=== PATIENT | male | born 1955 | race Caucasian/White ===

== ENCOUNTER 2017-05-26 19:39 | Observation (INO) | payer SELFPAY ==
[2017-05-26 20:34] LABS: BASO % 0.5 % (0.0-2.0); EOS # 0.2 K/uL (0.0-0.7); EOS % 2.4 % (0.0-4.0); HEMOGLOBIN 14.1 g/dL (12.0-18.0); LYMPH # 2.5 K/uL (1.0-4.3); LYMPH % 35.2 % (20.0-40.0); MEAN CELL VOLUME 83.4 fL (80.0-94.0); MEAN CORPUSCULAR HEMOGLOBIN 28.1 pg (27.0-31.0); MEAN CORPUSCULAR HGB CONC 33.7 g/dL (33.0-37.0); MEAN PLATELET VOLUME 7.2 fL (7.2-11.7); MONO # 0.5 K/uL (0.0-0.8); MONO % 7.6 % (0.0-10.0); NEUT # 3.8 K/uL (1.8-7.0); NEUT % 54.3 % (50.0-75.0); RED CELL DISTRIBUTION WIDTH 14.3 % (11.5-14.5); WHITE BLOOD COUNT 7.1 K/uL (4.8-10.8)
[2017-05-26 20:46] LABS: ALB/GLOB RATIO 1.2 (1.0-2.1); ALBUMIN 4.2 g/dL (3.5-5.0); ALT/SGPT 25 U/L (21-72); AST/SGOT 28 U/L (17-59); BLOOD UREA NITROGEN 10 mg/dL (9-20); CALCIUM 9.5 mg/dl (8.6-10.4); GFR AFRICAN-AMERICAN > 60; GFR NON-AFRICAN AMERICAN > 60
[2017-05-26 20:59] LABS: CK-MB < 0.22 ng/mL (0.0-3.38)
--- NOTE | 2017-05-26 21:30 | C.PDOC ---
History Of Present Illness 62 year old male presents to the ER with a complaint of left lower chest pain since approximately 16:00. Patient reports the pain is pleuritic, reproducible, intermittent, nonradiating, and has improved since then. Patient has a Hx of diabetes, HTN, and CAD with one stent placed 4 years ago. Denies cough, fever, nausea, vomiting, or SOB. Time Seen by Provider: 05/26/17 20:05 Chief Complaint (Nursing): Chest Pain History Per: Patient History/Exam Limitations: no limitations Onset/Duration Of Symptoms: Hrs, Intermittent Episodes Current Symptoms Are (Timing): Still Present Quality: Other (Pleuritic pain) Associated Symptoms: denies: Nausea, Dyspnea, Diaphoresis, Syncope Modifying Factors: None Exacerbating Factors: None Alleviating Factors: None Recent travel outside of the [place]: No Past Medical History Reviewed: Historical Data, Nursing Documentation, Vital Signs Vital Signs: Last Vital Signs Temp 98.8 F 05/26/17 19:54 Pulse 89 05/26/17 19:54 Resp 18 05/26/17 19:54 BP 145/94 H 05/26/17 19:54 Pulse Ox 97 05/26/17 21:30 - Medical History PMH: HTN, Hypothyroidism Surgical History: Coronary Stent Family History: States: Unknown Family Hx - Social History Hx Alcohol Use: No Hx Substance Use: No - Immunization History Hx Tetanus Toxoid Vaccination: No Hx Influenza Vaccination: No Hx Pneumococcal Vaccination: No Review Of Systems Except As Marked, All Systems Reviewed And Found Negative. Respiratory: Positive for: Pleuritic Pain Physical Exam - Physical Exam Appears: Non-toxic, Other (Comfortable) Skin: Normal Color, Warm, Dry Head: Atraumatic, Normacephalic Eye(s): bilateral: Normal Inspection Oral Mucosa: Moist Chest: Tenderness (Left lower), Other (No rash or erythema) Cardiovascular: Rhythm Regular Respiratory: Normal Breath Sounds, No Rales, No Rhonchi, No Wheezing Gastrointestinal/Abdominal: Soft, No Tenderness Extremity: No Pedal Edema, No Calf Tenderness Neurological/Psych: Oriented x3, Normal Speech ED Course And Treatment - Laboratory Results Result Diagrams: 05/26/17 20:31 05/26/17 20:31 ECG: Interpreted By Me, Viewed By Me ECG Rhythm: Sinus Rhythm ECG Interpretation: Normal Interpretation Of ECG: Left axis deviation, no acute ST/T wave changes. Rate From EC O2 Sat by Pulse Oximetry: 97 (Room air) Pulse Ox Interpretation: Normal - Radiology CXR: Interpreted by Me, Viewed By Me CXR Interpretation: Yes: No Acute Disease. No: Infiltrates Progress Note: EKG, blood work, and CXR ordered. Aspirin administered. Disposition - Disposition Referrals: Non [facility] Provider, [Primary Care Provider] - Forms: [email or web address] (Romansh) - Scribe Statement The provider has reviewed the documentation as recorded by the Scribe Andrea Boogie All medical record entries made by the Scribe were at my direction and personally dictated by me. I have reviewed the chart and agree that the record accurately reflects my personal performance of the history, physical exam, medical decision making, and the department course for this patient. I have also personally directed, reviewed, and agree with the discharge instructions and disposition.
[2017-05-27] MEDS ORDERED: Dextrose 50% SYRINGE Inj (50 ml) IVP PRN (00:55)
[2017-05-27] MEDS ORDERED: Glucagon Recombinant 1 mg Inj IM PRN (00:55)
--- NOTE | 2017-05-27 02:32 | CP.PCM.HP ---
History of Present Illness - History of Present Illness History of Present Illness: CC: chest pain 62 year old male with a PMH of DM, HTN, Hypothyridism and IN presents to [facility] ED for chest pain. Patient stated chest pain has been occuring for the past 3 days worse earlier today. He states the chest pain fluctuates thorughout the day. The pain worsens when he leans forward. Pain remains localized to left side and does not radiate to any other part of the body. He states the pain is a 7/10 at its worst. Patient had an IN 4 years ago and had a stent placed. He denies any SOB, palpitations, fevers, n/v/d/c, dysuria, hematuria, headache, dizziness, numbness/tingling, weakness or changes in his vision. Patient is from [facility] where he lives with his . He is visiting and living with his son since Jan 2017. Allergies: Denies PMH: DM, hypothyroidism, hyperlipidemia, Medications: ECOSPRIN 150, ROSEDAY 40mg, THYROX 50ugm, PLAVIX 75, SELORAM 50+5, DIABETA SR 1GM, ISTAVEL 50MG Surgical Hx: Cardiac catherization 2011 with 1 stent, Brain surgical procedure 1 year ago Social Hx: He denies tobacco, alcohol, or any illicit drug use currently or in the past. Family Hx: Denies Present on Admission - Present on Admission Any Indicators Present on Admission: No Review of Systems - Review of Systems Systems not reviewed;Unavailable: Language Barrier - Constitutional Constitutional: As Per HPI. absent: Chills, Fever, Weight Loss - EENT Eyes: As Per HPI. absent: Blind Spots, Decreased Night Vision, Diplopia Ears: As Per HPI. absent: Decreased Hearing, Dizziness Nose/Mouth/Throat: As Per HPI. absent: Epistaxis, Nasal Congestion - Cardiovascular Cardiovascular: As Per HPI, Chest Pain, Chest Pain with Activity. absent: Leg Edema - Respiratory Respiratory: As Per HPI. absent: Cough, Dyspnea - Gastrointestinal Gastrointestinal: As Per HPI. absent: Abdominal Pain, Diarrhea, Nausea, Vomiting - Genitourinary Genitourinary: As Per HPI. absent: Dysuria, Urinary Frequency - Reproductive: Male Reproductive:Male: As Per HPI - Musculoskeletal Musculoskeletal: As Per HPI. absent: Deformity, Joint Swelling - Integumentary Integumentary: As Per HPI - Neurological Neurological: As Per HPI. absent: Confusion, Dizziness, Tremor - Psychiatric Psychiatric: As Per HPI. absent: Anxiety, Depression - Endocrine Endocrine: As Per HPI. absent: Change in Body Appearance - Hematologic/Lymphatic Hematologic: As Per HPI Past Patient History - Infectious Disease Hx of Infectious Diseases: None - Past Social History Smoking Status: Never Smoked - CARDIAC Hx Hypertension: Yes - ENDOCRINE/METABOLIC Hx Hypothyroidism: Yes - PSYCHIATRIC Hx Substance Use: No - SURGICAL HISTORY Hx Coronary Stent: Yes - ANESTHESIA Hx Anesthesia: No Hx Anesthesia Reactions: No Meds Allergies/Adverse Reactions: Allergies Allergy/AdvReac Type Severity Reaction Status Date / Time No Known Allergies Allergy Verified 05/27/17 03:59 Physical Exam - Constitutional Appears: Well, Non-toxic, No Acute Distress - Head Exam Additional comments: Right occipital region indentation - Eye Exam Eye Exam: EOMI, Normal appearance Pupil Exam: PERRL - ENT Exam ENT Exam: Mucous Membranes Moist - Neck Exam Neck exam: Positive for: Normal Inspection - Respiratory Exam Respiratory Exam: Clear to Auscultation Bilateral, NORMAL BREATHING PATTERN. absent: Respiratory Distress - Cardiovascular Exam Cardiovascular Exam: REGULAR RHYTHM, +S1, +S2 - GI/Abdominal Exam GI & Abdominal Exam: Normal Bowel Sounds, Soft. absent: Tenderness - Extremities Exam Extremities exam: Positive for: normal inspection - Neurological Exam Neurological exam: Alert, Oriented x3 - Psychiatric Exam Psychiatric exam: Normal Affect, Normal Mood - Skin Skin Exam: Normal Color, Warm Results - Vital Signs Recent Vital Signs: Last Vital Signs Temp 97.7 F 05/26/17 23:46 Pulse 83 05/26/17 23:46 Resp 18 05/26/17 23:46 BP 147/76 05/26/17 23:46 Pulse Ox 99 05/27/17 00:21 - Labs Result Diagrams: 05/26/17 20:31 05/26/17 20:31 Labs: Laboratory Results - last 24 hr 05/26/17 05/26/17 05/26/17 20:05 20:31 20:31 WBC 7.1 RBC 5.00 Hgb 14.1 Hct 41.7 MCV 83.4 MCH 28.1 MCHC 33.7 RDW 14.3 Plt Count 209 MPV 7.2 Neut % (Auto) 54.3 Lymph % (Auto) 35.2 [place] % (Auto) 7.6 Eos % (Auto) 2.4 Baso % (Auto) 0.5 Neut # (Auto) 3.8 Lymph # (Auto) 2.5 [place] # (Auto) 0.5 Eos # (Auto) 0.2 Baso # (Auto) 0.0 Sodium 144 Potassium 5.0 Chloride 102 Carbon Dioxide 26 Anion Gap 21 H BUN 10 Creatinine 0.8 Est GFR ( Amer) > 60 Est GFR (Non-Af Amer) > 60 POC Glucose (mg/dL) 97 Random Glucose 111 H Calcium 9.5 Total Bilirubin 0.9 AST 28 ALT 25 Alkaline Phosphatase 33 L Total Creatine Kinase 41 L CK-MB (Mass) < 0.22 Troponin I < 0.0120 Total Protein 7.8 Albumin 4.2 Globulin 3.6 Albumin/Globulin Ratio 1.2 Assessment & Plan - Assessment and Plan (Free Text) Assessment: Chest pain -Resolved upon physical exam -EKG NSR @85bpm, left axis deviation, no acute ST changes -Troponin negative x2, repeat pending -Follow up am EKG, echocardiogram -Cardiology consulted, Dr. Valderrama help appreciated -Aspirin, Rosuvastatin Diabetes -Consistent carb diet -ISS -FS ACHS -Hypoglycemia protocol Hypothryoidism -synthroid 50mcg Prophylactic measures -Lovenox -Protonix
[2017-05-27 03:42] LABS: CK-MB < 0.22 ng/mL (0.0-3.38)
[2017-05-27 06:23] LABS: BASO % 0.5 % (0.0-2.0); EOS # 0.1 K/uL (0.0-0.7); EOS % 2.7 % (0.0-4.0); HEMOGLOBIN 13.3 g/dL (12.0-18.0); LYMPH # 2.1 K/uL (1.0-4.3); LYMPH % 38.7 % (20.0-40.0); MEAN CELL VOLUME 82.5 fL (80.0-94.0); MEAN CORPUSCULAR HEMOGLOBIN 28.1 pg (27.0-31.0); MEAN CORPUSCULAR HGB CONC 34.1 g/dL (33.0-37.0); MONO # 0.4 K/uL (0.0-0.8); MONO % 7.8 % (0.0-10.0); NEUT # 2.7 K/uL (1.8-7.0); NEUT % 50.3 % (50.0-75.0); RBC 4.72 Mil/uL (4.40-5.90); RED CELL DISTRIBUTION WIDTH 14.2 % (11.5-14.5); WHITE BLOOD COUNT 5.3 K/uL (4.8-10.8)
[2017-05-27] MEDS ORDERED: Levothyroxine 50 MCG TAB PO SCH (06:30)
[2017-05-27 06:37] LABS: ALB/GLOB RATIO 1.2 (1.0-2.1); ALBUMIN 3.8 g/dL (3.5-5.0); ALT/SGPT 30 U/L (21-72); AST/SGOT 23 U/L (17-59); BLOOD UREA NITROGEN 10 mg/dL (9-20); GFR AFRICAN-AMERICAN > 60; GFR NON-AFRICAN AMERICAN > 60
--- NOTE | 2017-05-27 07:05 | RAD ---
Chest x-ray single frontal view History: Chest pain. Comparison: None available. Findings: Confluent increased consolidative opacification at the lateral aspect the left lung base with trace left pleural effusion. Clinical correlation. Diffuse increased interstitial lung markings. Biapical pleural thickening with upper lobe granulomatous changes. Tortuous aorta. Degenerative changes in the spine and shoulders. Impression: Confluent increased consolidative opacification at the lateral aspect the left lung base with trace left pleural effusion. Clinical correlation. Diffuse increased interstitial lung markings. Biapical pleural thickening with upper lobe granulomatous changes. Tortuous aorta.
[2017-05-27] MEDS ORDERED: (Novolin R) Insulin Human Regular 100 units/ml vial SC SCH (07:30)
[2017-05-27 07:39] VITALS: RESP 20; O2SAT 97
[2017-05-27 09:49] LABS: CK-MB < 0.22 ng/mL (0.0-3.38)
[2017-05-27] MEDS ORDERED: Pantoprazole 40 mg EC Tab PO SCH (10:00)
[2017-05-27] MEDS: Enoxaparin 40 mg Syringe SC SCH ×2 (10:47→10:50)
[2017-05-27] MEDS ORDERED: Azithromycin 500 MG in Sodium Chloride 0.9% 250 ML IVPB SCH (11:00)
[2017-05-27] MEDS ORDERED: Iodixanol 320 MG/ML 100 ML BOTTLE IV ONE (11:45)
--- NOTE | 2017-05-27 13:52 | CT ---
PROCEDURE: CT Chest with contrast HISTORY: Pleuritic chest pain COMPARISON: Plain radiographs from 05/26/2017. TECHNIQUE: Contiguous axial images were obtained through the chest with intravenous contrast enhancement. Sagittal and coronal reconstructions were performed. IV contrast: 100 mL Visipaque Radiation dose (DLP): 193.60 mGy-cm. This CT exam was performed using one or more of the following dose reduction techniques: Automated exposure control, adjustment of the mA and/or kV according to patient size, and/or use of iterative reconstruction technique. FINDINGS: LUNGS: The lungs are well inflated. There is dependent atelectasis in the left lung base. There is confluent airspace disease in the inferior lingula. MEDIASTINUM: The aorta is normal in caliber. No evidence of aortic aneurysm or dissection. The heart is normal in size. No pericardial effusion. No pathologic mediastinal or hilar lymphadenopathy. PLEURA: Small left pleural effusion. No pneumothorax. BONES: No fracture. No destructive lesion. UPPER ABDOMEN: Grossly unremarkable. OTHER FINDINGS: Both adrenal glands are normal in size. There is fatty infiltration in the liver. There is mild splenomegaly. IMPRESSION: 1. Confluent airspace disease in the inferior lingula may represent atelectasis/ pneumonia. Small left pleural effusion. Follow-up after medical management is recommended to ensure complete resolution. 2. Fatty liver and mild splenomegaly.
[2017-05-27 16:59] VITALS: BP 123/82; PULSE 94; TEMP 98.3
--- NOTE | 2017-05-27 17:52 | CARD ---
APPROVED REPORT EXAM: Two-dimensional and M-mode echocardiogram with Doppler and color Doppler. Other Information Quality : GoodRhythm : INDICATION Cardiac Disease: CAD Chest Pain RISK FACTORS Hypertension Diabetes M-Mode DIMENSIONS RVDd2.10 (2.1-3.2cm)Left Atrium (MM)2.37 (2.5-4.0cm) IVSd0.76 (0.7-1.1cm)Aortic Root3.34 (2.2-3.7cm) LVDd5.07 (4.0-5.6cm)Aortic Cusp Exc.1.61 (1.5-2.0cm) PWd0.82 (0.7-1.1cm)FS (%) 43 % LVDs2.89 (2.0-3.8cm)LVEF (%)74 (>50%) Mitral Valve MV E Dmtxzgqc46.8cm/sMV A Yyphniew896.8cm/sE/A ratio0.7 TDI E/Lateral E'0.0E/Medial E'0.0 LEFT VENTRICLE The left ventricle is normal size. There is normal left ventricular wall thickness. The left ventricular systolic function is normal. The left ventricular ejection fraction is within the normal range. There is normal LV segmental wall motion. Transmitral Doppler flow pattern is Grade I-abnormal relaxation pattern. RIGHT VENTRICLE The right ventricle is normal size. The right ventricular systolic function is normal. AORTIC VALVE The aortic valve is normal in structure. No aortic regurgitation is present. MITRAL VALVE The mitral valve is normal in structure. There is no mitral valve regurgitation noted. TRICUSPID VALVE The tricuspid valve is normal in structure. PULMONIC VALVE The pulmonic valve is not well visualized. GREAT VESSELS The aortic root is normal in size. The aortic root displays mild sclerocalcific changes. The IVC is normal in size and collapses >50% with inspiration. PERICARDIAL EFFUSION There is no pericardial effusion. <Conclusion> The left ventricular systolic function is normal. There is normal LV segmental wall motion. Transmitral Doppler flow pattern is Grade I-abnormal relaxation pattern. The right ventricular systolic function is normal. No gross valvular abnormality. There is no pericardial effusion.
--- NOTE | 2017-05-27 18:16 | CP.PCM.PN ---
<Handy Cruz - Last Filed: 05/27/17 18:11> Subjective - Date & Time of Evaluation Date of Evaluation: 05/27/17 Time of Evaluation: 18:11 - Subjective Subjective: patient seen and examined at bedside. Doing well. No complaints at this time. No more chest pain. Denies any SOB. Objective - Vital Signs/Intake and Output Vital Signs (last 24 hours): Temp Pulse Resp BP Pulse Ox 98.3 F 94 H 20 123/82 97 05/27/17 15:00 05/27/17 15:00 05/27/17 15:00 05/27/17 15:00 05/27/17 15:00 Intake and Output: 05/27/17 05/27/17 06:59 18:59 Intake Total 150 Balance 150 - Medications Medications: Current Medications Aspirin (Aspirin Chewable) 81 mg PO DAILY [facility] Last Admin: 05/27/17 10:47 Dose: 81 mg Clopidogrel Bisulfate (Plavix) 75 mg PO DAILY [facility] Enoxaparin Sodium (Lovenox) 40 mg SC DAILY [facility] Last Admin: 05/27/17 10:50 Dose: Not Given Ceftriaxone Sodium 1 gm/ (Sodium Chloride) 100 mls @ 200 mls/hr IVPB Q24H [facility] PRN Reason: Protocol Azithromycin 500 mg/ Sodium (Chloride) 250 mls @ 167 mls/hr IVPB Q24H [facility] PRN Reason: Protocol Last Admin: 05/27/17 11:49 Dose: 167 mls/hr Levothyroxine Sodium (Synthroid) 50 mcg PO DAILY@0630 [facility] Last Admin: 05/27/17 06:12 Dose: 50 mcg Metoprolol Succinate (Toprol Xl) 50 mg PO DAILY [facility] Pneumococcal Polyvalent Vaccine (Pneumovax 23 Vaccine) 0.5 ml IM .ONCE ONE Stop: 05/29/17 14:01 Rosuvastatin Calcium (Crestor) 10 mg PO [facility] - Labs Labs: 05/27/17 06:07 05/27/17 06:07 - Constitutional Appears: Well - Head Exam Head Exam: ATRAUMATIC, NORMAL INSPECTION, NORMOCEPHALIC - Eye Exam Eye Exam: EOMI, Normal appearance, PERRL Pupil Exam: NORMAL ACCOMODATION, PERRL - ENT Exam ENT Exam: Mucous Membranes Moist, Normal Exam - Neck Exam Neck Exam: Full ROM, Normal Inspection. absent: Lymphadenopathy - Respiratory Exam Additional comments: crackles in LLL - Cardiovascular Exam Cardiovascular Exam: REGULAR RHYTHM, +S1, +S2. absent: Murmur - GI/Abdominal Exam GI & Abdominal Exam: Soft, Normal Bowel Sounds. absent: Tenderness - Extremities Exam Extremities Exam: Full ROM, Normal Capillary Refill, Normal Inspection. absent : Joint Swelling, Pedal Edema - Back Exam Back Exam: NORMAL INSPECTION - Neurological Exam Neurological Exam: Alert, Awake, CN II-XII Intact, Normal Gait, Oriented x3 - Psychiatric Exam Psychiatric exam: Normal Affect, Normal Mood - Skin Skin Exam: Dry, Intact, Normal Color, Warm Assessment and Plan - Assessment and Plan (Free Text) Assessment: Chest pain -Resolved upon physical exam -EKG NSR @85bpm, left axis deviation, no acute ST changes -Trops negative x3 -echocardiogram shows normal LV function, normal valves -Cardiology consulted, Dr. Lavelle oconnor appreciated - follow up reccs -Aspirin, Rosuvastatin, Plavix, metoprolol -chest CT shows confluent airspace disease in the inferior lingula may represent atelectasis or pneumonia. Patient started on azithromycin and rocephin Diabetes -Consistent carb diet -ISS Hypothryoidism -synthroid 50mcg Prophylactic measures -Lovenox -GI ppx not indicated <Denys Obrien - Last Filed: 05/27/17 18:48> Objective - Vital Signs/Intake and Output Vital Signs (last 24 hours): Temp Pulse Resp BP Pulse Ox 98.3 F 94 H 20 123/82 97 05/27/17 15:00 05/27/17 15:00 05/27/17 15:00 05/27/17 15:00 05/27/17 15:00 Intake and Output: 05/27/17 05/27/17 06:59 18:59 Intake Total 150 Balance 150 - Medications Medications: Current Medications Aspirin (Aspirin Chewable) 81 mg PO DAILY [facility] Last Admin: 05/27/17 10:47 Dose: 81 mg Clopidogrel Bisulfate (Plavix) 75 mg PO DAILY [facility] Enoxaparin Sodium (Lovenox) 40 mg SC DAILY [facility] Last Admin: 05/27/17 10:50 Dose: Not Given Ceftriaxone Sodium 1 gm/ (Sodium Chloride) 100 mls @ 200 mls/hr IVPB Q24H [facility] PRN Reason: Protocol Azithromycin 500 mg/ Sodium (Chloride) 250 mls @ 167 mls/hr IVPB Q24H [facility] PRN Reason: Protocol Last Admin: 05/27/17 11:49 Dose: 167 mls/hr Levothyroxine Sodium (Synthroid) 50 mcg PO DAILY@0630 [facility] Last Admin: 05/27/17 06:12 Dose: 50 mcg Metoprolol Succinate (Toprol Xl) 50 mg PO DAILY [facility] Pneumococcal Polyvalent Vaccine (Pneumovax 23 Vaccine) 0.5 ml IM .ONCE ONE Stop: 05/29/17 14:01 Rosuvastatin Calcium (Crestor) 10 mg PO HS [facility] - Labs Labs: 05/27/17 06:07 05/27/17 06:07 Attending/Attestation - Attestation I have personally seen and examined this patient.: Yes I have fully participated in the care of the patient.: Yes I have reviewed all pertinent clinical information, including history, physical exam and plan: Yes Notes (Text): Patient was seen and examined,no fever,no cough. 1.Chest pain 2.Pneumonia 3.H/O CAD and stent placement 4.DM 5.Hypothyroidism chext x ray left effusion/pneumonia-start on Zithromax Discussed with the resident. CT chest ordered.Discussed with family at bedside I agree with the resident's documentation of the assessment and the plan
--- NOTE | 2017-05-27 19:04 | CP.PCM.DIS ---
<Handy Cruz - Last Filed: 05/27/17 19:22> Provider - Provider Date of Admission: 05/26/17 21:50 Attending physician: Tr Morel MD Primary care physician: Non [facility] Provider Consults: Cardio: Lavelle Time Spent in preparation of Discharge (in minutes): 45 Diagnosis - Discharge Diagnosis (1) Chest pain Status: Resolved Priority: High Hospital Course - Lab Results Lab Results: Most Recent Lab Values WBC 5.3 K/uL (4.8-10.8) 05/27/17 06:07 RBC 4.72 Mil/uL (4.40-5.90) 05/27/17 06:07 Hgb 13.3 g/dL (12.0-18.0) 05/27/17 06:07 Hct 39.0 % (35.0-51.0) 05/27/17 06:07 MCV 82.5 fL (80.0-94.0) 05/27/17 06:07 MCH 28.1 pg (27.0-31.0) 05/27/17 06:07 MCHC 34.1 g/dL (33.0-37.0) 05/27/17 06:07 RDW 14.2 % (11.5-14.5) 05/27/17 06:07 Plt Count 197 K/uL (130-400) 05/27/17 06:07 MPV 7.0 fL (7.2-11.7) L 05/27/17 06:07 Neut % (Auto) 50.3 % (50.0-75.0) 05/27/17 06:07 Lymph % (Auto) 38.7 % (20.0-40.0) 05/27/17 06:07 Kern % (Auto) 7.8 % (0.0-10.0) 05/27/17 06:07 Eos % (Auto) 2.7 % (0.0-4.0) 05/27/17 06:07 Baso % (Auto) 0.5 % (0.0-2.0) 05/27/17 06:07 Neut # (Auto) 2.7 K/uL (1.8-7.0) 05/27/17 06:07 Lymph # (Auto) 2.1 K/uL (1.0-4.3) 05/27/17 06:07 Kern # (Auto) 0.4 K/uL (0.0-0.8) 05/27/17 06:07 Eos # (Auto) 0.1 K/uL (0.0-0.7) 05/27/17 06:07 Baso # (Auto) 0.0 K/uL (0.0-0.2) 05/27/17 06:07 Sodium 143 mmol/L (132-148) 05/27/17 06:07 Potassium 4.0 mmol/L (3.6-5.2) 05/27/17 06:07 Chloride 104 mmol/L (98-107) 05/27/17 06:07 Carbon Dioxide 27 mmol/L (22-30) 05/27/17 06:07 Anion Gap 16 (10-20) 05/27/17 06:07 BUN 10 mg/dL (9-20) 05/27/17 06:07 Creatinine 0.8 mg/dL (0.8-1.5) 05/27/17 06:07 Est GFR ( Amer) > 60 05/27/17 06:07 Est GFR (Non-Af Amer) > 60 05/27/17 06:07 POC Glucose (mg/dL) 120 mg/dL (65-110) H 05/27/17 16:36 Random Glucose 97 mg/dL (75-110) 05/27/17 06:07 Calcium 9.0 mg/dl (8.6-10.4) 05/27/17 06:07 Total Bilirubin 0.9 mg/dL (0.2-1.3) 05/27/17 06:07 AST 23 U/L (17-59) 05/27/17 06:07 ALT 30 U/L (21-72) 05/27/17 06:07 Alkaline Phosphatase 36 U/L (38-126) L 05/27/17 06:07 Total Creatine Kinase 22 U/L (55-170) L 05/27/17 09:15 CK-MB (Mass) < 0.22 ng/mL (0.0-3.38) 05/27/17 09:15 Troponin I < 0.0120 ng/mL (0.00-0.120) 05/27/17 09:15 Total Protein 6.9 g/dL (6.3-8.3) 05/27/17 06:07 Albumin 3.8 g/dL (3.5-5.0) 05/27/17 06:07 Globulin 3.1 gm/dL (2.2-3.9) 05/27/17 06:07 Albumin/Globulin Ratio 1.2 (1.0-2.1) 05/27/17 06:07 - Hospital Course Hospital Course: 62 year old male with a PMH of DM, HTN, Hypothyridism and MS presents to [facility] ED for chest pain. Patient stated chest pain has been occuring for the past 3 days worse earlier today. He states the chest pain fluctuates thorughout the day. The pain worsens when he leans forward. Pain remains localized to left side and does not radiate to any other part of the body. He states the pain is a 7/10 at its worst. Patient had an MS 4 years ago and had a stent placed. He denies any SOB, palpitations, fevers, n/v/d/c, dysuria, hematuria, headache, dizziness, numbness/tingling, weakness or changes in his vision. Patient is from [facility] where he lives with his . He is visiting and living with his son since Jan 2017. Hospital Course: Patient had trops negative x 3 and 3 e[address] with no ST changes and no arrythmogenic intervals. Patient was seen by Dr. Valderrama heel seat laster who cleared the patient for discharge. Discharge Exam - Head Exam Head Exam: ATRAUMATIC, NORMAL INSPECTION, NORMOCEPHALIC - Eye Exam Eye Exam: EOMI, Normal appearance, PERRL Pupil Exam: NORMAL ACCOMODATION, PERRL - GI/Abdominal Exam GI & Abdominal Exam: Normal Bowel Sounds - Neurological Exam Neurological exam: Alert, CN II-XII Intact, Normal Gait, Oriented x3, Reflexes Normal - Psychiatric Exam Psychiatric exam: Normal Affect, Normal Mood - Skin Skin Exam: Dry, Intact, Normal Color, Warm Discharge Plan - Discharge Medications Prescriptions: Azithromycin [Z-Jesus Alberto] 250 mg PO DAILY #6 tab - Follow Up Plan Condition: GOOD Disposition: HOME/ ROUTINE Instructions: Heart Healthy Diet, Azithromycin (Systemic), Chest Pain (DC) Additional Instructions: Please follow up with your primary care provider Please take Azithromycin as directed Please come back to ED if symptoms continue Please continue to take home medications Referrals: Non [facility] Provider, [Primary Care Provider] - <Denys Obrien - Last Filed: 05/28/17 15:51> Provider - Provider Date of Admission: 05/26/17 21:50 Attending physician: Tr Morel MD Primary care physician: Non [facility] Provider Hospital Course - Lab Results Lab Results: Most Recent Lab Values WBC 5.3 K/uL (4.8-10.8) 05/27/17 06:07 RBC 4.72 Mil/uL (4.40-5.90) 05/27/17 06:07 Hgb 13.3 g/dL (12.0-18.0) 05/27/17 06:07 Hct 39.0 % (35.0-51.0) 05/27/17 06:07 MCV 82.5 fL (80.0-94.0) 05/27/17 06:07 MCH 28.1 pg (27.0-31.0) 05/27/17 06:07 MCHC 34.1 g/dL (33.0-37.0) 05/27/17 06:07 RDW 14.2 % (11.5-14.5) 05/27/17 06:07 Plt Count 197 K/uL (130-400) 05/27/17 06:07 MPV 7.0 fL (7.2-11.7) L 05/27/17 06:07 Neut % (Auto) 50.3 % (50.0-75.0) 05/27/17 06:07 Lymph % (Auto) 38.7 % (20.0-40.0) 05/27/17 06:07 Kern % (Auto) 7.8 % (0.0-10.0) 05/27/17 06:07 Eos % (Auto) 2.7 % (0.0-4.0) 05/27/17 06:07 Baso % (Auto) 0.5 % (0.0-2.0) 05/27/17 06:07 Neut # (Auto) 2.7 K/uL (1.8-7.0) 05/27/17 06:07 Lymph # (Auto) 2.1 K/uL (1.0-4.3) 05/27/17 06:07 Kern # (Auto) 0.4 K/uL (0.0-0.8) 05/27/17 06:07 Eos # (Auto) 0.1 K/uL (0.0-0.7) 05/27/17 06:07 Baso # (Auto) 0.0 K/uL (0.0-0.2) 05/27/17 06:07 Sodium 143 mmol/L (132-148) 05/27/17 06:07 Potassium 4.0 mmol/L (3.6-5.2) 05/27/17 06:07 Chloride 104 mmol/L (98-107) 05/27/17 06:07 Carbon Dioxide 27 mmol/L (22-30) 05/27/17 06:07 Anion Gap 16 (10-20) 05/27/17 06:07 BUN 10 mg/dL (9-20) 05/27/17 06:07 Creatinine 0.8 mg/dL (0.8-1.5) 05/27/17 06:07 Est GFR ( Amer) > 60 05/27/17 06:07 Est GFR (Non-Af Amer) > 60 05/27/17 06:07 POC Glucose (mg/dL) 120 mg/dL (65-110) H 05/27/17 16:36 Random Glucose 97 mg/dL (75-110) 05/27/17 06:07 Calcium 9.0 mg/dl (8.6-10.4) 05/27/17 06:07 Total Bilirubin 0.9 mg/dL (0.2-1.3) 05/27/17 06:07 AST 23 U/L (17-59) 05/27/17 06:07 ALT 30 U/L (21-72) 05/27/17 06:07 Alkaline Phosphatase 36 U/L (38-126) L 05/27/17 06:07 Total Creatine Kinase 22 U/L (55-170) L 05/27/17 09:15 CK-MB (Mass) < 0.22 ng/mL (0.0-3.38) 05/27/17 09:15 Troponin I < 0.0120 ng/mL (0.00-0.120) 05/27/17 09:15 Total Protein 6.9 g/dL (6.3-8.3) 05/27/17 06:07 Albumin 3.8 g/dL (3.5-5.0) 05/27/17 06:07 Globulin 3.1 gm/dL (2.2-3.9) 05/27/17 06:07 Albumin/Globulin Ratio 1.2 (1.0-2.1) 05/27/17 06:07 Attending/Attestation - Attestation I have personally seen and examined this patient.: Yes I have fully participated in the care of the patient.: Yes I have reviewed all pertinent clinical information, including history, physical exam and plan: Yes Notes (Text): Patient was seen and examined by me today.Discussed with the patient and the family. Patient was seen by Dr Valderrama.I discussed with the resident's assessment and the discharge plan 05/28/17 15:46
[2017-05-28] MEDS ORDERED: Metoprolol Succinate 50 mg XL Tab PO SCH (10:00)
--- NOTE | 2017-05-29 10:42 | CARD ---
APPROVED REPORT EKG Measurement Heart [id number] <Conclusion> Normal sinus rhythm Left axis deviation Abnormal ECG
[2017-05-29] MEDS ORDERED: Pneumococcal 23-Valent Vaccine IM ONE (14:00)
== END 2017-05-27 21:00 | disposition home or self-care (01) ==
LOC: SUPCPDRO 19:39 → C.ER 19:39 → C.6T 21:50 → C.9E 21:50
PROVIDERS: ADMIT Family Medicine; ATTEND Family Medicine
DX: R07.9 Chest pain, unspecified (principal); E11.9 Type 2 diabetes mellitus without complications; I10 Essential (primary) hypertension; Z95.5 Presence of coronary angioplasty implant and graft; I25.10 Atherosclerotic heart disease of native coronary artery without angina pectoris; E03.9 Hypothyroidism, unspecified; I25.2 Old myocardial infarction; E78.5 Hyperlipidemia, unspecified; Z79.82 Long term (current) use of aspirin; Z79.02 Long term (current) use of antithrombotics/antiplatelets; Z79.84 Long term (current) use of oral hypoglycemic drugs; J18.9 Pneumonia, unspecified organism; K76.0 Fatty (change of) liver, not elsewhere classified
CPT/HCPCS: 36415; 71045; 71260; 80053; 82550; 82553; 82948; 84484; 85025; 93005; 93306; 99285; G0378; J0456; Q9967